=== PATIENT | male | born 1950 | race Caucasian/White ===

== ENCOUNTER → 2021-03-11 | Outpatient (CLI) | payer MEDICARE, BC ==
--- NOTE | 2021-03-11 13:58 | RAD ---
EXAM: 3 views left knee DATE: 03/11/2021 9:56 AM INDICATION: Reason: KNEE PAIN / Spl. Instructions: / History: . COMPARISON: No Prior FINDINGS: No evidence of acute fracture or dislocation. Joint spaces are preserved without significant degenera tive/proliferative change. Small medial compartment osteophytes. No knee joint effusion. IMPRESSION: 1. No acute fracture or dislocation. 2. Mild left knee joint osteoarthritis. Electronically signed by: Sp Ward MD (03/11/2021 1:56 PM) [id number]
== END ==
LOC: RAD 09:45
PROVIDERS: ATTEND Family Medicine
DX: M17.12 Unilateral primary osteoarthritis, left knee (principal); M25.762 Osteophyte, left knee
CPT/HCPCS: 73562